=== PATIENT | female | born 1995 | race Caucasian/White ===

== ENCOUNTER 2021-12-23 16:43 | Inpatient (IN) ==
[~2021-12-23 16:43] MED LIST: *HR* Nalbuphine 10 MG/ML AMPUL IV PRN; Azithromycin 500 MG in 0.9 % Sodium Chloride 250 ML IVPB PRN; Famotidine 20 MG/2 ML VIAL IVP PRN; Metoclopramide 10 MG/2 ML VIAL IVP PRN; Naloxone 0.4 MG/ML INJ IVP PRN; Ondansetron 4 MG/2 ML VIAL IVP PRN
[2021-12-23] MEDS ORDERED: Ringers Solution, Lactated 1,000 ML IVC SCH (16:45)
[2021-12-23 17:38] LABS: Basophils % 0.2 %; Eosinophils % 0.2 %; Hematocrit 34.6 % (35.3-44.9); Hemoglobin 11.4 g/dL (11.5-15.4); Lymphocytes # 1.7 K/mcL (0.6-4.6); Lymphocytes % 10.2 %; Mean Corpuscular HGB Conc 32.9 g/dL (31.6-35.5); Mean Corpuscular Hemoglobin 27.7 pg (28.0-33.3); Monocytes # 1.1 K/mcL (0.0-1.3); Monocytes % 6.6 %; Neutrophils # 13.8 K/mcL (1.6-8.9); Platelet Count 296 K/mcL (140-400); Red Blood Count 4.12 M/mcL (3.82-4.97); Red Cell Distribution Width 13.2 % (11.5-14.5); Segmented Neutrophils % 81.8 %; White Blood Count 16.9 K/mcL (4.3-11.1)
[2021-12-23 17:54] LABS: Amphetamine Screen,Urine Negative ng/mL (Cutoff=1000); Barbiturate Screen,Urine Negative ng/mL (Cutoff=200); Benzodiazepines Screen,Urine Negative ng/mL (Cutoff=200); Cannabinoid Screen,Urine Negative ng/mL (Cutoff = 50); Cocaine Screen,Urine Negative ng/mL (Cutoff= 300); Opiate Screen,Urine Negative ng/mL (Cutoff=300); Phencyclidine Screen,Urine Negative ng/mL (Cutoff=25); Protein/Creatinine Ratio,Urine 0.29 mg/mg (0.00-0.20)
[2021-12-23 17:58] LABS: Alanine Aminotransferase 8 Units/L (7-52); Aspartate Amino Transferase 13 Units/L (13-39); BUN/Creatinine Ratio 14 (6-26); Blood Urea Nitrogen 8 mg/dL (6-20); Lactate Dehydrogenase 117 Units/L (140-271); Uric Acid 4.7 mg/dL (2.3-7.6); eGFR For African Americans > 60 (> 60); eGFR For Non-African Americans > 60 (> 60)
[2021-12-23] MEDS ORDERED: EPHEDrine 50 MG/ML VIAL IVP PRN (18:35)
[2021-12-23] MEDS ORDERED: Epidural Premix (fent/bupiv) 110 ML EP SCH (18:45)
[2021-12-23] MEDS ORDERED: OXYTOCIN/RINGERS LACTATE 10 UNIT/166.6 ML BAG IVC ONE (20:30)
[2021-12-23] MEDS ORDERED: CeFAZolin 2,000 MG/120 ML BAG IVPB ONE (20:30)
[2021-12-23] MEDS ORDERED: Oxytocin 30 UNIT/503 ML BAG IVC SCH (20:30)
[2021-12-23] MEDS ORDERED: *HR* OxyCODONE Immed Rel 5 MG TABLET PO PRN (20:33)
[2021-12-23] MEDS ORDERED: *HR* FentaNYL (PF) 100 MCG/2 ML VIAL IVP PRN (20:33)
[2021-12-23] MEDS ORDERED: *HR* Morphine Sulfate/PF 10 MG/10 ML AMPUL ONE (20:49)
[2021-12-23] MEDS ORDERED: *HR* FentaNYL (PF) 100 MCG/2 ML VIAL ONE (20:49)
[2021-12-23] MEDS ORDERED: Acetaminophen IV 1,000 MG/100 ML BAG IVPB ONE (20:50)
[2021-12-23] MEDS ORDERED: Ondansetron 4 MG/2 ML VIAL ONE (20:50)
[2021-12-23] MEDS ORDERED: Ketorolac 30 MG/ML VIAL ONE (20:50)
[2021-12-23] MEDS ORDERED: Ringers Solution, Lactated 1,000 ML ONE (22:07)
[2021-12-24] MEDS ORDERED: Ringers Solution, Lactated 1,000 ML IVC SCH ×2 (01:06→22:45)
[2021-12-24] MEDS ORDERED: Ondansetron 4 MG/2 ML VIAL IVP PRN (01:06)
[2021-12-24] MEDS ORDERED: OXYTOCIN/RINGERS LACTATE 10 UNIT/166.6 ML BAG IVC ONE (01:06)
[2021-12-24] MEDS ORDERED: *HR* OxyCODONE Immed Rel 5 MG TABLET PO PRN (01:06)
[2021-12-24] MEDS ORDERED: Metoclopramide 10 MG/2 ML VIAL IVP PRN (01:06)
[2021-12-24] MEDS: Oxytocin 30 UNIT/503 ML BAG IVC SCH ×2 (02:10→06:02)
[2021-12-24 05:43] LABS: Basophils % 0.2 %; Hematocrit 22.2 % (35.3-44.9); Mean Corpuscular Volume 87.4 fL (83.0-100.0); Mean Platelet Volume 10.2 fL (9.4-12.4); Red Blood Count 2.54 M/mcL (3.82-4.97)
[2021-12-24 05:44] LABS: Basophils # 0.1 K/mcL (0.0-0.2); Hemoglobin 7.2 g/dL (11.5-15.4); Immature Granulocytes % 1.5 % (0-4); Lymphocytes # 1.5 K/mcL (0.6-4.6); Lymphocytes % 4.5 %; Mean Corpuscular HGB Conc 32.4 g/dL (31.6-35.5); Mean Corpuscular Hemoglobin 28.3 pg (28.0-33.3); Monocytes # 2.1 K/mcL (0.0-1.3); Monocytes % 6.3 %; Neutrophils # 28.4 K/mcL (1.6-8.9); Platelet Count 271 K/mcL (140-400); Red Cell Distribution Width 13.5 % (11.5-14.5); Segmented Neutrophils % 87.5 %
[2021-12-24 05:50] LABS: White Blood Count 32.5 K/mcL (4.3-11.1)
[2021-12-24] MEDS: Acetaminophen 325 MG TABLET PO SCH ×4 (06:03→20:35)
[2021-12-24] MEDS: Ibuprofen 600 MG TABLET PO SCH ×4 (08:01→23:15)
[2021-12-24] MEDS: Prenatal Vit/FA 1 EACH TABLET PO SCH (08:11)
[2021-12-24] MEDS: Simethicone 80 MG TAB.CHEW PO SCH ×3 (08:12→18:39)
[2021-12-24] MEDS ORDERED: Gentamicin 80 MG in 0.9 % Sodium Chloride 100 ML IVPB SCH (09:00)
[2021-12-24] MEDS ORDERED: Piperacillin/Tazobactam 3.375 GM in 0.9 % Sodium Chloride Mini Bag 100 ML IVPB SCH (10:00)
[2021-12-24] MEDS ORDERED: Gentamicin 130 MG in 0.9 % Sodium Chloride 100 ML IVPB SCH (10:00)
[2021-12-24] MEDS: Gentamicin 130 MG in 0.9 % Sodium Chloride 100 ML IVPB SCH ×2 (10:17→18:03)
[2021-12-24] MEDS: Piperacillin/Tazobactam 3.375 GM in 0.9 % Sodium Chloride Mini Bag 100 ML IVPB SCH ×2 (11:28→20:36)
[2021-12-24 12:41] LABS: Basophils % 0.1 %; Hematocrit 18.7 % (35.3-44.9); Hemoglobin 6.1 g/dL (11.5-15.4); Immature Granulocytes % 1.1 % (0-4); Lymphocytes # 2.4 K/mcL (0.6-4.6); Lymphocytes % 10.4 %; Mean Corpuscular HGB Conc 32.6 g/dL (31.6-35.5); Mean Corpuscular Hemoglobin 28.5 pg (28.0-33.3); Mean Corpuscular Volume 87.4 fL (83.0-100.0); Mean Platelet Volume 10.3 fL (9.4-12.4); Monocytes # 1.8 K/mcL (0.0-1.3); Monocytes % 7.9 %; Neutrophils # 18.7 K/mcL (1.6-8.9); Platelet Count 226 K/mcL (140-400); Red Blood Count 2.14 M/mcL (3.82-4.97); Red Cell Distribution Width 13.6 % (11.5-14.5); Segmented Neutrophils % 80.5 %; White Blood Count 23.2 K/mcL (4.3-11.1)
[2021-12-24] MEDS ORDERED: 0.9 % Sodium Chloride 500 ML ONE (13:07)
[2021-12-24 21:59] LABS: Basophils % 0.1 %; Eosinophils # 0.1 K/mcL (0.0-0.6); Eosinophils % 0.3 %; Hematocrit 19.9 % (35.3-44.9); Hemoglobin 6.7 g/dL (11.5-15.4); Immature Granulocytes % 1.4 % (0-4); Lymphocytes # 2.5 K/mcL (0.6-4.6); Lymphocytes % 14.6 %; Mean Corpuscular HGB Conc 33.7 g/dL (31.6-35.5); Mean Corpuscular Hemoglobin 29.3 pg (28.0-33.3); Mean Corpuscular Volume 86.9 fL (83.0-100.0); Mean Platelet Volume 9.7 fL (9.4-12.4); Monocytes # 1.5 K/mcL (0.0-1.3); Neutrophils # 12.7 K/mcL (1.6-8.9); Platelet Count 181 K/mcL (140-400); Red Blood Count 2.29 M/mcL (3.82-4.97); Red Cell Distribution Width 13.3 % (11.5-14.5); Segmented Neutrophils % 74.6 %
[2021-12-25] MEDS: Gentamicin 130 MG in 0.9 % Sodium Chloride 100 ML IVPB SCH (01:29)
[2021-12-25] MEDS: Acetaminophen 325 MG TABLET PO SCH ×4 (04:20→19:59)
[2021-12-25] MEDS: Piperacillin/Tazobactam 3.375 GM in 0.9 % Sodium Chloride Mini Bag 100 ML IVPB SCH (04:21)
[2021-12-25 08:04] LABS: Basophils % 0.2 %; Eosinophils % 0.3 %; Hematocrit 21.1 % (35.3-44.9); Immature Granulocytes % 1.1 % (0-4); Lymphocytes # 1.6 K/mcL (0.6-4.6); Lymphocytes % 11.6 %; Mean Corpuscular HGB Conc 33.2 g/dL (31.6-35.5); Mean Corpuscular Hemoglobin 28.6 pg (28.0-33.3); Mean Corpuscular Volume 86.1 fL (83.0-100.0); Mean Platelet Volume 10.1 fL (9.4-12.4); Monocytes % 7.2 %; Neutrophils # 11.2 K/mcL (1.6-8.9); Platelet Count 177 K/mcL (140-400); Red Blood Count 2.45 M/mcL (3.82-4.97); Red Cell Distribution Width 13.6 % (11.5-14.5); Segmented Neutrophils % 79.6 %; White Blood Count 14.1 K/mcL (4.3-11.1)
[2021-12-25] MEDS: Ibuprofen 600 MG TABLET PO SCH ×4 (08:12→22:24)
[2021-12-25] MEDS: Prenatal Vit/FA 1 EACH TABLET PO SCH (08:12)
[2021-12-25 08:20] LABS: BUN/Creatinine Ratio 16 (6-26); Blood Urea Nitrogen 9 mg/dL (6-20); eGFR For African Americans > 60 (> 60); eGFR For Non-African Americans > 60 (> 60)
[2021-12-25] MEDS ORDERED: 0.9 % Sodium Chloride 500 ML ONE (09:08)
[2021-12-25] MEDS: Simethicone 80 MG TAB.CHEW PO SCH ×2 (13:03→15:09)
[2021-12-25 18:39] LABS: Basophils # 0.1 K/mcL (0.0-0.2); Basophils % 0.3 %; Eosinophils # 0.1 K/mcL (0.0-0.6); Eosinophils % 0.4 %; Hematocrit 27.9 % (35.3-44.9); Immature Granulocytes % 1.4 % (0-4); Lymphocytes # 2.3 K/mcL (0.6-4.6); Lymphocytes % 12.4 %; Mean Corpuscular HGB Conc 34.4 g/dL (31.6-35.5); Mean Corpuscular Hemoglobin 29.5 pg (28.0-33.3); Mean Corpuscular Volume 85.8 fL (83.0-100.0); Mean Platelet Volume 10.1 fL (9.4-12.4); Monocytes # 1.3 K/mcL (0.0-1.3); Monocytes % 7.2 %; Neutrophils # 14.2 K/mcL (1.6-8.9); Platelet Count 233 K/mcL (140-400); Red Blood Count 3.25 M/mcL (3.82-4.97); Red Cell Distribution Width 13.8 % (11.5-14.5); Segmented Neutrophils % 78.3 %; White Blood Count 18.2 K/mcL (4.3-11.1)
[2021-12-25 18:41] LABS: Hemoglobin 9.6 g/dL (11.5-15.4)
[2021-12-26] MEDS ORDERED: Lanolin 7 G OINT...G. TP PRN (02:31)
[2021-12-26] MEDS: Acetaminophen 325 MG TABLET PO SCH ×2 (02:49→08:02)
[2021-12-26] MEDS: Simethicone 80 MG TAB.CHEW PO SCH (08:02)
[2021-12-26] MEDS: Prenatal Vit/FA 1 EACH TABLET PO SCH (08:02)
[2021-12-26] MEDS: Ibuprofen 600 MG TABLET PO SCH (08:02)
[2021-12-26 09:28] VITALS: BP 112/74; PULSE 85; TEMP 97.5; O2SAT 100
== END 2021-12-26 10:45 | disposition home or self-care (01) | DRG 787 ==
LOC: 1NENULAB → 1NENUOBS 12-24 01:20
PROVIDERS: ADMIT Obstetrics & Gynecology; ATTEND Obstetrics & Gynecology